=== PATIENT | male | born 1950 | race Caucasian/White ===

== ENCOUNTER → 2019-03-30 | Outpatient (CLI) | payer OTHER ==
[~2019-03-30] MED LIST: CO Q-10150 MG PO; FISH OIL 1,0001 EAC5 PO; GLUCOSAMINE-CH900 MG PO; MILK THISTLE 11 EACH PO; NAPROSYN500 MG PO; NIACIN 500 MG500 M1 PO; NORCO 5-325 TA1 EACH PO; VITAMIN D1000 UNI1 PO; ZOFRAN ODT4 MG PO
--- NOTE | 2019-04-02 08:43 | PF ---
[address] [address] PULMONARY FUNCTION REPORT Name: BUCKY ALVARADO Room: [facility]#: [id number] Admission: 03/30/19 Attend Phys: Zita Pleitez MD Discharge: Date of : 46 Report #: [id number] THIS REPORT FOR: //name// CC: Zita Pleitez DATE OF SERVICE: 03/30/2019 ATTENDING PHYSICIAN: Zita Pleitez MD The patient is a 68-year-old male with mild dyspnea on exertion. Full PFTs were indicated. Spirometry demonstrates within normal limits. Mild decrease in mid flow rates are noted. No improvement after inhaled bronchodilator. Postbronchodilator studies reveal an FEV1 of 3.0, an FVC of 4.0, ratio 76%. Mild decrease in 75-80% of predicted is noted with minimal improvement. Peak flow was at 600. Lung volumes performed via plethysmography show mild restrictive defect with total lung capacity of 58% predicted, vital capacity of 89% of predicted and then RV was diminished at 5%. Diffusion was within normal limits. IMPRESSION: Mild restrictive defect, could be related to just very mild increase in body habitus. No significant decrease in diffusion capacity is noted. <ELECTRONICALLY SIGNED> By: Willie Wright MD 04/02/19 0843 [id number] 1953Aemily Wright MD /pablo
== END ==
LOC: M.PUL 08:40
DX: R06.02 Shortness of breath (principal)

== ENCOUNTER → 2019-04-07 | Outpatient (CLI) | payer OTHER ==
--- NOTE | 2019-04-08 23:50 | SLEEP ---
[address] [address] SLEEP STUDY REPORT Name: BUCKY ALVARADO Room: [facility]#: [id number] Admission: 04/07/19 Attend Phys: Zita Pleitez MD Discharge: Date of : 46 Report #: [id number] THIS REPORT FOR: //name// CC: Zita Pleitez MD This study has been reviewed in its entirety by a board certified sleep specialist DATE OF SERVICE: 04/07/2019 SLEEP STUDY ATTENDING PHYSICIAN: Zita Pleitez MD The patient is 68-year-old who weighs 190 pounds with a BMI of 26.5. The patient's Wheaton score was 2. The patient underwent split night study performed at [facility]. During the night study, the patient spent 402 minutes in bed and slept for 238 minutes with a low sleep efficiency of 59%. Sleep latency was 8.6 minutes with a REM latency of 113 minutes. Overall, sleep architecture showed normal stage 1 and stage 2 sleep, increased slow wave and slightly reduced REM sleep. During the initial diagnostic portion of the study, the patient spent 153 minutes in bed and slept for 91 minutes. During that time, there were 6 obstructive apneas, 1 central apnea, no mixed apneas, and 34 hypopneas. The patient's apnea hypopnea index was 27 per hour with a REM index of 15 per hour and a supine index of 34 per hour. EKG monitoring revealed an average heart rate of 52 beats per minute, no sustained arrhythmias observed. PLMs were not seen during the diagnostic portion of the study; however, during the therapeutic part, they were seen at an index of 42 per hour with an arousal index of 8.6 per hour. Nocturnal oximetry study during the diagnostic portion revealed an average oxygen saturation of 94% with lowest of 84%. Three minutes were spent in oxygen saturation of less than 89%. The patient met the criteria for CPAP initiation. It was started at 5 cm water and titrated up to 9 cm water. However, due to persistent central apneas, the patient was switched to BiPAP starting at 11/8 and titrated up to 14/10. At the final pressure, the patient slept for 87 minutes including 16.8 minutes of lateral REM sleep. The patient's AHI was reduced to 3.4 per [place] [address] SLEEP STUDY REPORT Name: BUCKY ALVARADO Room: [facility]#: [id number] Admission: 04/07/19 Attend Phys: Zita Pleitez MD Discharge: Date of : 46 Report #: [id number] saturation remained above 90%. There was one spot desaturation of 85% at the beginning of this pressure, but then saturation remained above 90% throughout. IMPRESSION: 1. Moderate sleep apnea-hypopnea syndrome with worsening during supine sleep. Total AHI 27 per hour with a supine AHI of 34 per hour. 2. No clinically significant nocturnal hypoxia. 3. PLM seen during the therapeutic portion only at an index of 42 per hour and 8 per hour caused EEG arousals. RECOMMENDATIONS: 1. BiPAP at a pressure of 14/10 completely eliminated the patient's sleep apnea and should be used on a nightly basis. 2. Follow up in 4-6 weeks to assess compliance with BiPAP and to document clinical improvement. 3. Weight loss to the ideal body weight is advised. 4. Avoid [employer] depressants. 5. Cautioned regarding driving until symptoms of sleep apnea have resolved with the use of BiPAP. 6. The patient should also be further evaluated for symptoms of restless legs during the day. 7. 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 If this is a chronic condition, then it should be further evaluated and treated according to the etiology. <ELECTRONICALLY SIGNED> By: Andrea García MD 04/08/19 2350 [id number] [id number] García MD /nt
== END ==
LOC: M.SLEEPLAB 20:41
DX: G47.33 Obstructive sleep apnea (adult) (pediatric) (principal); G47.39 Other sleep apnea; I10 Essential (primary) hypertension; E78.2 Mixed hyperlipidemia; K21.9 Gastro-esophageal reflux disease without esophagitis

== ENCOUNTER → 2019-07-20 | Outpatient (CLI) | payer OTHER | LOC: M.ULTRA 07-19 08:00 | DX: N28.1 Cyst of kidney, acquired (principal); N40.0 Benign prostatic hyperplasia without lower urinary tract symptoms; N28.9 Disorder of kidney and ureter, unspecified ==

== ENCOUNTER → 2020-10-09 | Outpatient (CLI) | payer OTHER | LOC: M.LAB 07:06 | PROVIDERS: ATTEND Orthopaedic Surgery | DX: Z01.812 Encounter for preprocedural laboratory examination (principal); Z20.822 Contact with and (suspected) exposure to COVID-19 ==

== ENCOUNTER → 2020-11-06 | Outpatient (CLI) | payer OTHER | LOC: M.LAB 08:46 | PROVIDERS: ATTEND Orthopaedic Surgery | DX: Z01.812 Encounter for preprocedural laboratory examination (principal); Z20.822 Contact with and (suspected) exposure to COVID-19 ==

== ENCOUNTER 2021-01-07 14:57 | Emergency (ER) | payer OTHER ==
[~2021-01-07] VITALS: Ht 177.8 cm; Wt 88.5 kg
[2021-01-07] MEDS ORDERED: MICARDIS40 MG PO (15:34)
[2021-01-07 16:09] LABS: ABSOLUTE BASOPHILS 0.1 thou/uL (0.0-0.2); ABSOLUTE EOSINOPHILS 0.2 thou/uL (0.0-0.7); ABSOLUTE LYMPHOCYTES 2.8 thou/uL (0.8-5.3); ABSOLUTE MONOCYTES 0.5 thou/uL (0.0-1.2); EOSINOPHILS 2.4 %; HEMATOCRIT 41.9 % (42.0-52.0); HEMOGLOBIN 13.8 gm/dL (14.0-18.0); LYMPHOCYTES 37.2 %; MCH 28.3 pg (26.0-34.0); MCV 85.7 fL (80.0-100.0); MONOCYTES 6.9 %; MPV 7.5 fl. (7.2-11.1); NUCLEATED RBCS 0 /100WBC; PLATELET COUNT* 423 thou/uL (150-400); POLYS 52.5 %; RBC 4.88 mil/uL (4.50-6.00); RDW-CV 14.4 % (10.5-14.5); WBC 7.6 thou/uL (4.0-11.0)
[2021-01-07 16:15] LABS: CALCIUM 9.6 mg/dL (8.5-10.1); POTASSIUM 4.3 mmol/L (3.5-5.1)
[2021-01-07 16:17] LABS: APTT 26.7 Seconds (25.0-31.3); PROTIME 10.6 Seconds (9.20-11.50)
[2021-01-07 16:25] LABS: ALBUMIN 3.3 g/dL (3.4-5.0); MAGNESIUM 2.2 mg/dL (1.8-2.4); TOTAL BILIRUBIN 0.5 mg/dL (<0.1-1.0); TOTAL PROTEIN 8.2 g/dL (6.4-8.2)
[2021-01-07] MEDS ORDERED: VENTOLIN HFA 1818 GM INH (17:07)
[2021-01-07] MEDS ORDERED: PREDNISONE 20 M20 M1 PO (17:07)
[2021-01-07 17:23] VITALS: BP 165/84
--- NOTE | 2021-01-08 09:51 | EKG ---
[place] [address] ELECTROCARDIOGRAM REPORT Name: CHRISTIANOBUCKY MYRICK Room: [facility]#: [id number] Admission: 01/07/21 Attend Phys: Discharge: 01/07/21 Date of : 46 Date of Service: 01/07/21 1601 Report #: [id number] THIS REPORT FOR: //name// [facility] ED Test Date: 2021-01-07 Test Time: 16:01:28 Pat Name: BUCKY ALVARADO Department: Room: Gender: Construction Estimator: : 1950 Requested By: Leonidas Solomon Order Number: [id number] MD: Flip Santiago Measurements Intervals [place] Rate: 61 P: 41 SD: 155 QRS: -25 QRSD: 94 T: 38 QT: 424 QTc: 427 Interpretive Statements Sinus rhythm Left ventricular hypertrophy No previous ECG available for comparison Electronically Signed On 01-08-2021 9:51:28 CDT by Flip Santiago [email or web address] <ELECTRONICALLY SIGNED> By: Flip Santiago MD, [facility] 01/08/21 0951 00 00 Flip Santiago MD, [facility] /EPI
== END 2021-01-07 17:24 | disposition home or self-care (01) ==
LOC: M.ERS 14:57
PROVIDERS: Family Medicine
DX: R06.00 Dyspnea, unspecified (principal); I10 Essential (primary) hypertension; R79.9 Abnormal finding of blood chemistry, unspecified